=== PATIENT | female | born 1985 | race Caucasian/White ===

== ENCOUNTER 2019-04-14 15:49 | Emergency (ER) | payer OTHER ==
[~2019-04-14] VITALS: Ht 160 cm; Wt 43.0 kg
[2019-04-14 16:04] VITALS: BP 101/70
[2019-04-14] MEDS ORDERED: WELLBUTRIN (16:13)
== END 2019-04-14 16:26 | disposition home or self-care (01) ==
LOC: ED 16:10
DX: F32.9 Major depressive disorder, single episode, unspecified (principal); Z76.0 Encounter for issue of repeat prescription
CPT/HCPCS: 99283